=== PATIENT | male | born 2000 | race Hispanic/Latino ===

== ENCOUNTER 2023-04-09 15:51 | Emergency (ER) | payer OTHER ==
[~2023-04-09] VITALS: Ht 167.6 cm; Wt 109.1 kg
[2023-04-09] MEDS ORDERED: KETOROLAC 60MG 2ML VIAL IM ONE (23:25)
[2023-04-09] MEDS ORDERED: methocarbamoL 500 MG TAB PO ONE (23:25)
[2023-04-10] MEDS ORDERED: IBUP-1022 PO (01:32)
[2023-04-10] MEDS ORDERED: METH-1164 PO (01:32)
[2023-04-10 01:51] VITALS: BP 145/93; TEMP 97.6; O2SAT 100
== END 2023-04-10 01:55 | disposition home or self-care (01) ==
LOC: EDBD 15:51 → M ED 15:51
DX: S23.3XXA Sprain of ligaments of thoracic spine, initial encounter (principal); S33.5XXA Sprain of ligaments of lumbar spine, initial encounter; V49.40XA Driver injured in collision with unspecified motor vehicles in traffic accident, initial encounter; Z79.1 Long term (current) use of non-steroidal anti-inflammatories (NSAID)
CPT/HCPCS: 72072; 72110; 96372; 99284; J1885

== ENCOUNTER 2024-09-21 16:41 | Emergency (ER) | payer OTHER ==
[~2024-09-21] VITALS: Ht 167.6 cm; Wt 83.6 kg
[~2024-09-21 16:41] MED LIST: IBUP-1022 PO; METH-1164 PO
[2024-09-21 16:44] VITALS: BP 140/66; TEMP 101.4; O2SAT 98
[2024-09-21] MEDS: IBUPROFEN 800 MG TAB PO ONE (17:25)
[2024-09-21] MEDS ORDERED: ONDA-282 PO (18:31)
[2024-09-21] MEDS ORDERED: BENZ200C70 PO (18:31)
== END 2024-09-21 18:45 | disposition home or self-care (01) ==
LOC: M ED 16:41
DX: J09.X2 Influenza due to identified novel influenza A virus with other respiratory manifestations (principal); Z79.83 Long term (current) use of bisphosphonates; Z79.899 Other long term (current) drug therapy

== ENCOUNTER 2025-05-02 08:23 | Emergency (ER) | payer OTHER ==
[~2025-05-02] VITALS: Ht 167.6 cm; Wt 85.2 kg
[~2025-05-02 08:23] MED LIST changes: +BENZ200C70 PO; -IBUP-1022 PO; +IBUP600T42 PO; +ONDA-282 PO
[2025-05-02] MEDS ORDERED: CYCL-707 PO (11:19)
[2025-05-02] MEDS ORDERED: IBUP600T42 PO (11:19)
[2025-05-02] MEDS ORDERED: LIDO1ADH93 TD (11:19)
[2025-05-02] MEDS: KETOROLAC 60 MG/2 ML VIAL IM ONE (11:28)
[2025-05-02] MEDS: CYCLOBENZAPRINE 10 MG TABLET PO ONE (11:28)
[2025-05-02] MEDS: LIDOCAINE 5% PATCH TD ONE (11:29)
[2025-05-02 11:51] VITALS: BP 133/81; TEMP 97.2; O2SAT 100
== END 2025-05-02 12:10 | disposition home or self-care (01) ==
LOC: M ED 08:23
DX: S23.3XXA Sprain of ligaments of thoracic spine, initial encounter (principal); M54.6 Pain in thoracic spine; X50.0XXA Overexertion from strenuous movement or load, initial encounter; Y92.9 Unspecified place or not applicable; Y93.89 Activity, other specified; Y99.9 Unspecified external cause status; Z79.1 Long term (current) use of non-steroidal anti-inflammatories (NSAID); Z79.899 Other long term (current) drug therapy
CPT/HCPCS: 96372; 99283; J1885